=== PATIENT | male | born 1965 | race Caucasian/White ===

== ENCOUNTER 2021-01-27 19:58 | Emergency (ER) | payer BC ==
[~2021-01-27] VITALS: Ht 185.4 cm; Wt 95.5 kg
[~2021-01-27 19:58] MED LIST: ALEVE220 MG PO; CEFTIN500 MG PO; FLOMAX 0.40.4 MG/CAP PO; MULTIVITAMIN1 CTB PO; PERCOCET 325 MG1 TA2 PO; ZOFRAN ODT4 MG PO
[2021-01-27 20:24] LABS: BASO # 0.1 (0.0-0.2); BASO % 0.7 % (0.0-2.0); EOS # 0.2 (0.0-0.7); EOS % 2.3 % (0-4.0); GRAN % 58.6 % (42.2-75.2); HEMATOCRIT 40.2 % (42.0-52.0); HEMOGLOBIN 13.6 g/dl (13.5-18.0); LYMPH # 2.1 (1.2-3.4); LYMPH % 31.1 % (20.0-51.0); MEAN CELL VOLUME 89 fl (80.0-100.0); MEAN CORPUSCULAR HEMOGLOBIN 30 pg (27.0-31.0); MEAN CORPUSCULAR HGB CONC 34 g/dl (33.0-37.0); MONO # 0.5 (0.1-0.6); PLATELET COUNT 283 K/mm3 (130-400); RED BLOOD COUNT 4.51 M/mm3 (4.20-5.60); REDCELL DISTRIBUTION WIDTH-CV 12.5 % (11.5-14.5)
[2021-01-27] MEDS ORDERED: PRINZIDE 12.5 M1 TAB PO (21:43)
[2021-01-27] MEDS ORDERED: ZOVIRAX 200MG200 MG PO (21:44)
[2021-01-27 22:16] VITALS: BP 153/88; PULSE 72; TEMP 98.5
== END 2021-01-27 22:16 | disposition short-term general hospital (02) ==
LOC: COL.ER 19:58
PROVIDERS: Physician Assistant
DX: S62.633A Displaced fracture of distal phalanx of left middle finger, initial encounter for closed fracture (principal); S61.213A Laceration without foreign body of left middle finger without damage to nail, initial encounter; S71.112A Laceration without foreign body, left thigh, initial encounter; S61.211A Laceration without foreign body of left index finger without damage to nail, initial encounter; I10 Essential (primary) hypertension; F17.290 Nicotine dependence, other tobacco product, uncomplicated; W31.89XA Contact with other specified machinery, initial encounter
CPT/HCPCS: J0690; J1170; J3010; J7030